=== PATIENT | female | born 1995 | race African-American/Black ===

== ENCOUNTER 2020-01-17 20:51 | Emergency (ER) | payer MEDICAID, OTHER ==
[~2020-01-17] VITALS: Ht 157.5 cm; Wt 76.5 kg
--- NOTE | 2020-01-17 21:00 | NUR ---
THIS IS A 24Y F THAT COMES IN FOR BILAT EAR PAIN STARTING ABOUT 3DAYS AGO AND WORSENING, PT DENIES ANY FEVERS, COUGH, SOB, NASAL CONGESTION OR ANY RECENT ILLNESS. PT AMB THROUGH ER TO ROOM NO ASSIST REQ, VSS, NO NEEDS AT THIS TIME
--- NOTE | 2020-01-17 21:16 | NUR ---
pt nad, resting on gurney, states her ears are painful bilaterally. ERP Randle at bs for eval and poc, slight irritation noted bilaterally. denies any head trauma or changes in vision. wctm.
--- NOTE | 2020-01-17 21:39 | NUR ---
PT REPORTED SORE THROAT AT THIS TIME. PT SWABBED FOR STREP. SITTING UP IN [facility], DENIES ADDITIONAL NEEDS AT THIS TIME, CALL [facility], [facility]. WAITING FOR RESULTS.
[2020-01-17 21:48] VITALS: BP 139/80
--- NOTE | 2020-01-17 21:49 | NUR ---
Patient given discharge instructions and they have confirmed that they understand the instructions. Patient ambulatory with steady gait. nad, denies additional questions or needs at this time, no personal belongings left in room at the time of dc.
== END 2020-01-17 21:51 | disposition home or self-care (01) ==
LOC: ED 21:06
DX: H60.503 Unspecified acute noninfective otitis externa, bilateral (principal); R09.81 Nasal congestion; J02.9 Acute pharyngitis, unspecified
CPT/HCPCS: 87081; 87880; 99283